=== PATIENT | male | born 1945 | race Caucasian/White ===

== ENCOUNTER 2023-08-10 16:01 | Inpatient (IN) | payer OTHER, BC ==
[~2023-08-10] VITALS: Ht 182.9 cm; Wt 75.0 kg
[2023-08-10 16:01] VITALS: BP_SYST 131; PULSE 63; RESP 18; TEMP 97.3; O2SAT 99
[~2023-08-10 16:01] MED LIST: METF-518 PO
[2023-08-10] MEDS ORDERED: iohexoL 350 mgI/mL, 100 ML INFUS..BTL IV ONE (16:09)
[2023-08-10 17:27] LABS: BASOPHILS % (AUTO) 0.7 % (0.0-2.0); EOSINOPHILS # (AUTO) 0.3 K/uL (0.0-0.4); EOSINOPHILS % (AUTO) 4.1 % (0.0-4.0); HEMATOCRIT 40.2 % (36-54); HEMOGLOBIN 14.1 g/dL (14.0-18.0); LYMPHOCYTES # (AUTO) 0.7 K/uL (1.0-5.5); LYMPHOCYTES % (AUTO) 10.8 % (20.5-51.5); MEAN CORPUSCULAR HEMOGLOBIN 32 pg (27-31); MEAN CORPUSCULAR HGB CONC 35 % (32-36); MEAN CORPUSCULAR VOLUME 91 fL (79.0-98.0); MONOCYTES # (AUTO) 0.4 K/uL (0.0-1.0); MONOCYTES % (AUTO) 6.5 % (1.7-9.3); NEUTROPHILS # (AUTO) 5.1 K/uL (1.8-7.7); NEUTROPHILS % (AUTO) 77.9 % (40.0-70.0); PLATELET COUNT (AUTO) 246 K/uL (130-430); RED CELL DISTRIBUTION WIDTH 13.4 % (9.0-15.0); WHITE BLOOD COUNT (AUTO) 6.6 K/uL (4.8-10.8)
[2023-08-10 17:31] LABS: BILIRUBIN,URINE NEGATIVE (NEGATIVE); CLARITY/URINE CLEAR (CLEAR); COLOR,URINE YELLOW (YELLOW); GLUCOSE,URINE 3+ (NEGATIVE); KETONES,URINE NEGATIVE (NEGATIVE); LEUKOCYTE ESTERASE ,URINE NEGATIVE (NEGATIVE); NITRITE, URINE NEGATIVE (NEGATIVE); PROTEIN URINE NEGATIVE (NEGATIVE); UROBILINOGEN,URINE 0.2 (0.2-1.0)
[2023-08-10 17:42] LABS: BARBITURATE, URINE NEGATIVE (NEG <=200); BENZODIAZEPINE, URINE NEGATIVE (NEG <=150); CANNABINOID, URINE NEGATIVE (NEG <=50); COCAINE, URINE NEGATIVE (NEG <=150); METHAMPHETAMINES SCREEN,URINE NEGATIVE (NEG <=500); OPIATE, URINE NEGATIVE (NEG <=100); PHENCYCLIDINE SCREEN,URINE NEGATIVE (NEG <=25); UR TRICYCLIC ANTIDEPRESSANTS NEGATIVE (NEG <=300); URINE AMPHETAMINE NEGATIVE (NEG <=500); URINE METHADONE NEGATIVE (NEG <=200); URINE OXYCODONE SCREEN NEGATIVE (NEG <=100)
[2023-08-10 17:43] LABS: BLOOD, URINE TRACE (NEGATIVE)
[2023-08-10 17:44] LABS: BACTERIA,URINE RARE /HPF (None Seen); MUCUS,URINE None Seen /LPF (None Seen); RBC,URINE 0-3 /HPF (0-3); WBC,URINE 0-3 /HPF (0-3)
[2023-08-10 17:44] LABS: ANION GAP 7 (5-15); CARBON DIOXIDE 30 mmol/L (23-29); CHLORIDE 100 mmol/L (98-107); CREATININE 1.08 mg/dL (0.55-1.30); GLUCOSE 251 mg/dL (74-106); POTASSIUM 4.3 mmol/L (3.5-5.1); SODIUM SERUM 137 mmol/L (136-145); UREA NITROGEN, BLOOD 20 mg/dL (8-21)
[2023-08-10 17:53] LABS: CHOLESTEROL 162 mg/dL (<200); HDL CHOLESTEROL 38 mg/dL (>45); TRIGLYCERIDES 372 mg/dL (30-150)
[2023-08-10 17:58] LABS: HEMOGLOBIN A1C 6.22 % (<5.7)
[2023-08-10] MEDS ORDERED: ZOLPIDEM TARTRATE 5 MG TABLET PO PRN (19:45)
[2023-08-10] MEDS ORDERED: DEXTROSE 50% JECT 50 ML DISP.SYRIN IVP PRN (19:45)
[2023-08-10] MEDS ORDERED: MORPHINE 2 MG/ML INJ. SYRINGE IVP PRN ×2 (19:45)
[2023-08-10] MEDS ORDERED: POTASSIUM CHLORIDE 20 MEQ TABLET.ER PO PRN (19:45)
[2023-08-10] MEDS ORDERED: MAGNESIUM SULFATE 50 ML IV PRN (19:45)
[2023-08-10] MEDS ORDERED: DOCUSATE SODIUM 100 MG CAPSULE PO PRN (19:45)
[2023-08-10] MEDS ORDERED: ONDANSETRON HCL 4 MG/2 ML VIAL IVP PRN (19:45)
[2023-08-10] MEDS ORDERED: MUPIROCIN 2% TOPICAL OINTMENT 22 GM NS PRN (19:45)
[2023-08-10] MEDS ORDERED: ACETAMINOPHEN 500 MG TABLET PO PRN ×3 (20:00)
[2023-08-10] MEDS: ASPIRIN 81 MG TABLET(ECOTRIN) PO ONE (20:56)
[2023-08-10] MEDS: NACL 0.9% 1,000 ML IV SCH (20:56)
[2023-08-10] MEDS ORDERED: INSULIN Lispro 100 UNITS/ML, 3 ML VIAL (humaLOG) ONE (21:16)
[2023-08-10] MEDS: INSULIN LISPRO SLIDING SCALE 100 UNITS/ML, 3 ML VIAL (humaLOG) SUBCUT PRN (21:18)
[2023-08-10 23:55] VITALS: BP_SYST 145; PULSE 53; RESP 20; TEMP 96.6; O2SAT 99
[2023-08-11 00:04] VITALS: BP_SYST 145; BP_SYST 164; PULSE 53; RESP 20; TEMP 96.6; O2SAT 99
[2023-08-11 05:21] LABS: BASOPHILS # (AUTO) 0.1 K/uL (0.0-0.2); EOSINOPHILS # (AUTO) 0.4 K/uL (0.0-0.4); EOSINOPHILS % (AUTO) 4.8 % (0.0-4.0); HEMATOCRIT 37.8 % (36-54); LYMPHOCYTES # (AUTO) 1.3 K/uL (1.0-5.5); MEAN CORPUSCULAR HEMOGLOBIN 31 pg (27-31); MEAN CORPUSCULAR HGB CONC 34 % (32-36); MEAN CORPUSCULAR VOLUME 91 fL (79.0-98.0); MONOCYTES # (AUTO) 0.7 K/uL (0.0-1.0); MONOCYTES % (AUTO) 9.4 % (1.7-9.3); NEUTROPHILS # (AUTO) 5.4 K/uL (1.8-7.7); NEUTROPHILS % (AUTO) 68.8 % (40.0-70.0); PLATELET COUNT (AUTO) 228 K/uL (130-430); RED BLOOD CELL COUNT(AUTO) 4.18 MIL/uL (4.2-6.2); RED CELL DISTRIBUTION WIDTH 13.4 % (9.0-15.0); WHITE BLOOD COUNT (AUTO) 7.8 K/uL (4.8-10.8)
[2023-08-11 05:45] LABS: ANION GAP 9 (5-15); CALCIUM 8.7 mg/dL (8.4-11.0); CARBON DIOXIDE 27 mmol/L (23-29); CHLORIDE 105 mmol/L (98-107); CREATININE 0.99 mg/dL (0.55-1.30); GLUCOSE 130 mg/dL (74-106); POTASSIUM 3.7 mmol/L (3.5-5.1); SODIUM SERUM 141 mmol/L (136-145); UREA NITROGEN, BLOOD 19 mg/dL (8-21)
[2023-08-11 08:04] VITALS: BP_SYST 138; PULSE 51; RESP 16; TEMP 98.3; O2SAT 99
[2023-08-11] MEDS: ATORVASTATIN 20 MG TABLET PO SCH (09:14)
[2023-08-11] MEDS: ASPIRIN 81 MG TABLET(ECOTRIN) PO SCH (09:14)
[2023-08-11 10:14] VITALS: O2SAT 97
[2023-08-11 11:25] VITALS: BP_SYST 120; PULSE 47; RESP 16; TEMP 96.4; O2SAT 95
[2023-08-11 15:10] VITALS: BP_SYST 111; PULSE 52; RESP 16; TEMP 98.2; O2SAT 99
[2023-08-11] MEDS ORDERED: HYDROcodone/ACETAMIN 5-325 MG TAB (NORCO/ VICODIN) PO PRN (16:15)
[2023-08-11 20:25] VITALS: O2SAT 99
[2023-08-11] MEDS: LORazepam 2 MG/ML VIAL IVP PRN (21:15)
[2023-08-12] VITALS: BP_SYST 142; PULSE 78; RESP 19; TEMP 97.6; O2SAT 98
[2023-08-12 08:00] VITALS: BP_SYST 138; PULSE 78; RESP 18; TEMP 97.5; O2SAT 97
[2023-08-12] MEDS: CLOPIDOGREL BISULFATE 75 MG TABLET PO SCH (09:50)
[2023-08-12 10:02] VITALS: O2SAT 97
[2023-08-12 10:54] LABS: BASOPHILS # (AUTO) 0.1 K/uL (0.0-0.2); BASOPHILS % (AUTO) 1.3 % (0.0-2.0); EOSINOPHILS # (AUTO) 0.3 K/uL (0.0-0.4); EOSINOPHILS % (AUTO) 5.6 % (0.0-4.0); HEMATOCRIT 39.2 % (36-54); HEMOGLOBIN 13.4 g/dL (14.0-18.0); LYMPHOCYTES # (AUTO) 0.8 K/uL (1.0-5.5); LYMPHOCYTES % (AUTO) 12.7 % (20.5-51.5); MEAN CORPUSCULAR HEMOGLOBIN 31 pg (27-31); MEAN CORPUSCULAR HGB CONC 34 % (32-36); MEAN CORPUSCULAR VOLUME 92 fL (79.0-98.0); MONOCYTES # (AUTO) 0.5 K/uL (0.0-1.0); MONOCYTES % (AUTO) 7.8 % (1.7-9.3); NEUTROPHILS # (AUTO) 4.3 K/uL (1.8-7.7); NEUTROPHILS % (AUTO) 72.6 % (40.0-70.0); PLATELET COUNT (AUTO) 230 K/uL (130-430); RED BLOOD CELL COUNT(AUTO) 4.26 MIL/uL (4.2-6.2); RED CELL DISTRIBUTION WIDTH 13.3 % (9.0-15.0); WHITE BLOOD COUNT (AUTO) 5.9 K/uL (4.8-10.8)
[2023-08-12 11:25] LABS: ANION GAP 6 (5-15); CARBON DIOXIDE 30 mmol/L (23-29); CHLORIDE 104 mmol/L (98-107); CREATININE 1.07 mg/dL (0.55-1.30); GLUCOSE 205 mg/dL (74-106); POTASSIUM 3.7 mmol/L (3.5-5.1); SODIUM SERUM 140 mmol/L (136-145); THYROID STIMULATING HORMONE 1.65 uIu/mL (0.34-4.82); UREA NITROGEN, BLOOD 17 mg/dL (8-21)
[2023-08-12 12:09] VITALS: BP_SYST 122; PULSE 56; RESP 18; TEMP 98.1; O2SAT 97
[2023-08-12] MEDS ORDERED: LIP20 PO (14:20)
[2023-08-12] MEDS ORDERED: ASPI-1393 PO (14:20)
[2023-08-12 16:00] VITALS: BP_SYST 124; PULSE 53; RESP 18; TEMP 97.4; O2SAT 96
[2023-08-12 16:26] VITALS: BP_SYST 124; PULSE 53; RESP 18; TEMP 97.4; O2SAT 96
== END 2023-08-12 19:30 | disposition home health service (06) | DRG 68 ==
LOC: SED 16:01 → STU 19:47
PROVIDERS: ADMIT General Practice; ATTEND General Practice
DX: I65.22 Occlusion and stenosis of left carotid artery (principal); G91.2 (Idiopathic) normal pressure hydrocephalus; I10 Essential (primary) hypertension; F03.90 Unspecified dementia, unspecified severity, without behavioral disturbance, psychotic disturbance, mood disturbance, and anxiety; E11.9 Type 2 diabetes mellitus without complications; Z79.899 Other long term (current) drug therapy; I49.5 Sick sinus syndrome
CPT/HCPCS: 36415; 70450; 70496; 70498; 70551; 71045; 76376; 80048; 80061; 80307; 81000; 81001; 81015; 82948; 83037; 83735; 84443; 84484; 85025; 85610; 85730; 86886; 86900; 86901; 92610-GN; 93005; 97110-GP; 97112-GP; 97116-GP; 97530-GP; 99285; G0378; J2060; Q9967